=== PATIENT | male | born 1990 | race Asian ===

== ENCOUNTER → 2018-06-24 | Outpatient (CLI) | payer BC, OTHER ==
[~2018-06-24] MED LIST: OMNIPAQUE 350 MG/ML, 75ML BOTTLE ONE
== END | disposition home or self-care (01) ==
LOC: CFH 08:09
PROVIDERS: ATTEND Family Medicine
DX: R91.8 Other nonspecific abnormal finding of lung field (principal)
CPT/HCPCS: 71260; Q9967

== ENCOUNTER 2019-11-08 12:44 | Outpatient (CLI) | payer OTHER ==
[2019-11-08] MEDS ORDERED: None at this Time (13:47)
== END 2019-11-08 23:59 | disposition home or self-care (01) ==
LOC: STAR 12:44
PROVIDERS: ATTEND Orthopaedic Surgery
DX: Z02.9 Encounter for administrative examinations, unspecified (principal)

== ENCOUNTER 2019-11-26 05:37 | Day surgery (SDC) | payer OTHER ==
[~2019-11-26] VITALS: Ht 170.2 cm; Wt 92.3 kg
[~2019-11-26 05:37] MED LIST changes: +None at this Time; -OMNIPAQUE 350 MG/ML, 75ML BOTTLE ONE
[2019-11-26 06:06] VITALS: BP 130/83
[2019-11-26] MEDS ORDERED: LACTATED RINGERS 1,000 ML IV SCH (06:09)
[2019-11-26] MEDS ORDERED: BUPIVACAINE/PF-EPI 0.5% 1:200K ONE (06:17)
[2019-11-26] MEDS ORDERED: BACITRACIN 50,000 UNIT ONE (06:17)
[2019-11-26] MEDS ORDERED: LIDOCAINE-MPF 2% ,5ML ONE (06:42)
[2019-11-26] MEDS ORDERED: MIDAZOLAM 1 MG/ML, 2ML ONE (06:42)
[2019-11-26] MEDS ORDERED: FENTANYL PF 100 MCG/2ML ONE ×2 (06:42→08:48)
[2019-11-26] MEDS ORDERED: ONDANSETRON 2MG/ML, 2ML ONE (06:42)
[2019-11-26] MEDS ORDERED: PROPOFOL 10 MG/ML, 20ML ONE (06:42)
[2019-11-26] MEDS ORDERED: CEFAZOLIN 1,000 MG ONE ×2 (06:42)
[2019-11-26] MEDS ORDERED: DEXAMETHASONE 4 MG/ML, 1ML ONE ×2 (06:42)
[2019-11-26] MEDS ORDERED: ACETAMINOPHEN 500 MG TABLET PO ONE (07:00)
[2019-11-26] MEDS ORDERED: HYDROmorphone 2 MG/ML, 1ML IVPush PRN (07:00)
[2019-11-26] MEDS ORDERED: OXYcodone 5 MG/5 ML ORAL.SOL UDC PO PRN (07:00)
[2019-11-26] MEDS ORDERED: MEPERIDINE/PF 25MG/ML,1ML IVPush PRN (07:00)
[2019-11-26] MEDS ORDERED: ONDANSETRON 2MG/ML, 2ML IV PRN (07:00)
[2019-11-26] MEDS ORDERED: LORazepam 2 MG/ML, 1ML IVPush PRN (07:00)
[2019-11-26] MEDS ORDERED: LIDOCAINE 1%, 20ML ONE (07:18)
[2019-11-26] MEDS ORDERED: methylPREDNISolone *ACETATE* 40 MG/ML ONE (07:18)
[2019-11-26] MEDS ORDERED: MEPERIDINE/PF 25MG/ML,1ML ONE (08:35)
[2019-11-26] MEDS ORDERED: OXYcodone 5 MG/5 ML ORAL.SOL UDC ONE (08:48)
[2019-11-26] MEDS: FENTANYL PF 100 MCG/2ML IV PRN ×2 (08:50→08:55)
== END 2019-11-26 10:30 | disposition home or self-care (01) ==
LOC: OUT 05:37
PROVIDERS: ATTEND Orthopaedic Surgery
DX: S63.511A Sprain of carpal joint of right wrist, initial encounter (principal); M25.532 Pain in left wrist; G47.33 Obstructive sleep apnea (adult) (pediatric); Z87.891 Personal history of nicotine dependence; X58.XXXA Exposure to other specified factors, initial encounter; Y93.75 Activity, martial arts; Y92.89 Other specified places as the place of occurrence of the external cause; Y99.8 Other external cause status
CPT/HCPCS: 20605; 25320; 73100; C1713; J0690; J1030; J1100; J2175; J2250; J2405; J2704; J3010; J7120; 76000

== ENCOUNTER → 2021-04-23 | Outpatient (CLI) | payer OTHER ==
[2021-04-23 10:06] LABS: BASOPHILS % (AUTO) 1 % (0-1); EOSINOPHILS % (AUTO) 3 % (1-7); LYMPHOCYTES % (AUTO) 33 % (22-44); MEAN CORPUSCULAR HEMOGLOBIN 30.2 pg (27.5-34.5); MEAN CORPUSCULAR HGB CONC 34.1 g/dL (33.2-36.2); MEAN PLATELET VOLUME 9.3 fL (7.4-10.4); MONOCYTES % (AUTO) 6 % (2-9); NEUTROPHILS % (AUTO) 57 % (42-75); PLATELET COUNT 253 x10^3/uL (130-400); RED BLOOD COUNT 5.05 x10^6/uL (4.38-5.82); RED CELL DISTRIBUTION WIDTH 12.8 % (9.4-14.8)
[2021-04-23 10:15] LABS: CALCIUM 9.1 mg/dL (8.5-10.1)
[2021-04-23 10:30] LABS: ALANINE AMINOTRANSFERASE 85 U/L (12-78); ALKALINE PHOSPHATASE 79 U/L (45-117); ANION GAP 7 mmol/L (5-15); BILIRUBIN,TOTAL 0.6 mg/dL (0.2-1.0); CHLORIDE 104 mmol/L (98-107); CHOL/HDL RATIO 5.5; CHOLESTEROL, TOTAL 260 mg/dL (140-239); CREATININE 0.94 mg/dL (0.7-1.3); HDL CHOL % 18 % (26-37); HDL CHOLESTEROL (DIRECT) 47 mg/dL (40-60); LDL CHOLESTEROL,CALCULATED 191 mg/dL (54-169); LDL/HDL RATIO 4.1 (0.5-3.0); TOTAL PROTEIN 8.2 g/dL (6.4-8.2); TRIGLYCERIDES 109 mg/dL (50-200); VLDL CHOLESTEROL 22 mg/dL (0-25)
== END | disposition home or self-care (01) ==
LOC: LAB 09:45
PROVIDERS: ATTEND Physician Assistant
DX: Z13.29 Encounter for screening for other suspected endocrine disorder (principal); E78.5 Hyperlipidemia, unspecified
CPT/HCPCS: 36415; 80053; 80061; 83036; 84443; 85025